=== PATIENT | male | born 1995 | race Caucasian/White ===

== ENCOUNTER 2021-12-21 08:36 | Emergency (ER) | payer OTHER, BC ==
[2021-12-21] MEDS ORDERED: Fentanyl 100 MCG/2 ML VIAL ONE (08:49)
[2021-12-21 09:16] LABS: Acetaminophen Less than 10.0 mcg/mL (10.0-30.0); Alcohol Less than 10 mg/dL (Less than 10); CK (CPK) 135 U/L (30-200); Salicylate Less than 8.0 mg/dL (15.0-30.0)
[2021-12-21 09:18] LABS: ALT (SGPT) 49 U/L (8-55); AST (SGOT) 42 U/L (5-34); Albumin 4.4 g/dL (3.5-5.0); Alkaline Phosphatase 96 U/L (40-110); Anion Gap 22 mmol/L (10-20); BUN (Urea Nitrogen) 14 mg/dL (8.9-20.6); Bilirubin, Total 0.3 mg/dL (0.2-1.2); Calc. Creatinine Clearance 0 mL/min (70-130); Calcium 9.9 mg/dL (7.8-10.44); Carbon Dioxide 18 mmol/L (22-29); Chloride 104 mmol/L (98-107); Estimated GFR 78; Globulin 3.1 g/dL (2.4-3.5); Glucose 142 mg/dL (70-105); Potassium 4.1 mmol/L (3.5-5.1); Protein, Total 7.5 g/dL (6.0-8.3); Sodium 140 mmol/L (136-145)
[2021-12-21 09:24] LABS: Hemoglobin 15.3 g/dL (13.5-17.5); Mean Corpuscular HGB CONC 34.6 g/dL (32.0-36.0); Mean Corpuscular Hemoglobin 29.2 pg (27.0-33.0); Mean Corpuscular Volume 84.4 fl (81.2-95.1); Mean Platelet Volume 9.9 fl (7.4-10.4); Platelet Count 389 10x3/uL (150-450); RBC Distribution Width 12.4 % (11.5-14.5); Red Blood Cell (RBC) Count 5.24 10x6/uL (4.32-5.72)
[2021-12-21 09:25] LABS: MDiff Complete? YES
[2021-12-21] MEDS ORDERED: Iopamidol 300 61% 100 ML VIAL FS ONE (09:45)
[2021-12-21 10:39] LABS: Band 7 % (5-11); Lymphocytes 39 % (21-51); Monocytes 8 % (0-10); Neutrophil 45 % (42-75)
[2021-12-21 10:40] LABS: Platelet Morphology Comment Appears Adequate; RBC Morphology Normal
== END 2021-12-21 11:15 | disposition short-term general hospital (02) ==
LOC: CSHERS 08:36
DX: S22.089A Unspecified fracture of T11-T12 vertebra, initial encounter for closed fracture (principal); S32.019A Unspecified fracture of first lumbar vertebra, initial encounter for closed fracture; R91.8 Other nonspecific abnormal finding of lung field; R56.9 Unspecified convulsions; V47.5XXA Car driver injured in collision with fixed or stationary object in traffic accident, initial encounter
CPT/HCPCS: 36415; 70450; 71045; 71260; 72125; 72170; 74177; 80053; 80307; 82550; 83605; 84146; 85025; 86850; 86900; 86901; 93005; 94760; 96374; 96376; G0390; J3010; Q9967